=== PATIENT | male | born 1970 | race Hispanic/Latino ===

== ENCOUNTER 2018-08-14 21:54 | Inpatient (IN) | payer OTHER ==
[~2018-08-14] VITALS: Ht 167.6 cm; Wt 95.2 kg
[2018-08-14] MEDS ORDERED: WELLTAB38 PO (22:13)
[2018-08-14] MEDS ORDERED: LUNE3TAB36 PO (22:13)
[2018-08-14] MEDS ORDERED: LISI20TA3 PO (22:13)
[2018-08-14] MEDS ORDERED: OXAZEPAM 15 MG CAP PO ONE (23:45)
[2018-08-15 00:09] LABS: ACETAMINOPHEN LEVEL < 2.0 UG/ML (10.0-30.0); ALBUMIN 3.3 GM/DL (3.2-5.2); ALT/SGPT 78 U/L (12-78); BILIRUBIN,DIRECT 0.8 MG/DL (0.0-0.2); BILIRUBIN,TOTAL 1.6 MG/DL (0.2-1.0); BLOOD UREA NITROGEN 9 MG/DL (7-18); CALCIUM LEVEL 7.2 MG/DL (8.5-10.1); CARBON DIOXIDE LEVEL 27 MEQ/L (21-32); CHLORIDE LEVEL 102 MEQ/L (98-107); CREATININE FOR GFR 0.82 MG/DL (0.70-1.30); ETHYL ALCOHOL (ETHANOL) 0.294 % (0.000-0.010); GLOMERULAR FILTRATION RATE > 60.0 (>60); GLUCOSE, FASTING 124 MG/DL (70-100); SALICYLATE LEVEL < 1.7 MG/DL (5.0-30.0); SODIUM LEVEL 140 MEQ/L (136-145); TOTAL PROTEIN 8.6 GM/DL (6.4-8.2)
[2018-08-15 00:13] LABS: HEMATOCRIT 42.2 % (42.0-52.0); HEMOGLOBIN 15.2 g/dl (13.5-17.5); MEAN CORPUSCULAR HEMOGLOBIN 32.4 pg (27.0-33.0); RED BLOOD COUNT 4.69 10^6/uL (4.30-6.10); WHITE BLOOD COUNT 6.6 10^3/uL (4.0-10.0)
[2018-08-15 00:18] LABS: AMPHETAMINES LEVEL URINE NEGATIVE (NEGATIVE); BARBITURATES URINE NEGATIVE (NEGATIVE); BENZODIAZEPINES URINE NEGATIVE (NEGATIVE); CANNABINOIDS URINE POSITIVE (NEGATIVE); COCAINE METABOLITE URINE NEGATIVE (NEGATIVE); METHADONE URINE NEGATIVE (NEGATIVE); OPIATES URINE NEGATIVE (NEGATIVE); PHENCYCLIDINE URINE NEGATIVE (NEGATIVE)
[2018-08-15 00:40] LABS: PLATELET COUNT, AUTOMATED 94 10^3/uL (150-450)
[2018-08-15 01:40] LABS: INR 1.42; PROTHROMBIN TIME 17.6 SECONDS (12.1-14.4)
[2018-08-15 01:41] LABS: PARTIAL THROMBOPLASTIN TIME 43.9 SECONDS (25.4-37.6)
[2018-08-15] MEDS ORDERED: diphenhydrAMINE 25 MG CAP PO ONE (02:15)
[2018-08-15] MEDS ORDERED: hydroCHLOROthiazide 25 MG TAB PO ONE (07:45)
[2018-08-15] MEDS ORDERED: LISINOPRIL 20 MG TAB PO ONE (07:45)
[2018-08-15] MEDS ORDERED: OXAZEPAM 15 MG CAP PO ONE ×2 (08:15→16:30)
[2018-08-15] MEDS: ENOXAPARIN 40 MG/0.4 ML SYRINGE (J1650) SC SCH (09:00)
[2018-08-15] MEDS: hydroCHLOROthiazide 25 MG TAB PO SCH (09:00)
[2018-08-15] MEDS: LISINOPRIL 20 MG TAB PO SCH (09:00)
[2018-08-15] MEDS: buPROPion **XL** TABLET 150MG (WELLBUTRIN XL) PO SCH (09:05)
[2018-08-15 11:33] LABS: ETHYL ALCOHOL (ETHANOL) 0.098 % (0.000-0.010)
[2018-08-15] MEDS ORDERED: LORazepam 2 MG TAB PO PRN (11:45)
[2018-08-15] MEDS ORDERED: ONDANSETRON 4 MG ORAL DISINTEGRATING TAB (Q0162 PER 1MG) PO ONE (13:15)
[2018-08-15] MEDS ORDERED: ESZO1TAB4 PO (13:34)
[2018-08-15] MEDS ORDERED: ONDANSETRON 4MG/2ML VIAL (J2405) IV PRN (15:15)
--- NOTE | 2018-08-15 15:15 | HPEPDOC ---
[facility] Medical History & Physical Date of Admission Aug 15, 2018 History and Physical ATTENDING: Dr. Sullivan. PCP: [facility] CC: psych problem HPI: 47yoM with a past medical history significant for alcohol use, HTN, who came to the emergency room 08/14/18 related to psych problem as per ED record. Reported having "too many bad dreams" "I am not mentally stable". Patient denies suicidal ideation/homicidal ideation. Denies any prior suicide attempts. States he was consuming alcohol on Tuesday and Tuesday, last drink 2 PM Tuesday. States consumed 1 liter of vodka. Denies any prior history of alcohol withdrawal seizure. Patient reports that he had not consumed alcohol since he completed rehabilitation 06/30. Reported some nausea which he states is currently resolved, no vomiting. States he is drinking fluids. Denies any fevers, chills, weakness, fatigue, CHU, CP, SOB, cough, palpitations, abdominal pain, or changes in bowel or bladder habits. Upon presentation to the hospital the patient was found to have ETOH withdrawal, thus the hospitalist team was consulted. PMHx: Hypertension Anxiety Depression History of alcohol use, completed rehabilitation 06/30 PSHX: Vasectomy SOCHX: 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 States he had not consumed alcohol until Tuesday when he drank 1 L of vodka, last drink 2 PM Tuesday. Illicit Drugs: Denies FAMHX: Mother: alive , breast cancer, diabetes Father: , prostate cancer Siblings: One brother, one sister Alive, depression, bipolar disorder Children: Alive, well Unexpected deaths due to medical reasons: None. ROS: As noted in HPI, otherwise 11pt ROS of systems reviewed and unremarkable. PE: GEN: 47yoM, appears stated age. No acute distress. Alert and oriented x 3. Anxious appearing. HEENT: Normocephalic, atraumatic. Pupils are equal, round, and reactive to light. Extraocular movements are intact. No nystagmus appreciated. Sclera are nonicteric. Conjunctiva without injection. Nose midline. Nasal turbinates without bogginess. No facial asymmetry. Moist mucous membranes. Neck supple, trachea midline. No lymphadenopathy or thyromegaly appreciated. CHEST: Regular rate and rhythm, +S1, +S2 LUNGS: Clear to auscultation bilaterally. No wheezes, rales, or rhonchi. Breathing appears symmetric and easy. Patient is speaking in full sentences. No accessory muscle use. ABD: Round, soft, non-tender, non-distended. +Bowel sounds throughout. No rebound or guarding. No costovertebral angle tenderness. EXT: Pulses 2+ bilaterally dorsalis pedis and radial. No lower extremity edema appreciated. SKIN: [place], dry, warm. Capillary refill <2sec. No rashes. NEURO: Alert and oriented x 3. Cranial nerves III-XII are intact. No focal deficits appreciated. A&P: 47yoM with a past medical history significant for alcohol use, HTN, who came to the emergency room 08/14/18 related to psych problem as per ED record. Reported having "too many bad dreams" "I am not mentally stable". Patient denies suicidal ideation/homicidal ideation. Denies any prior suicide attempts. States he was consuming alcohol on Tuesday and Tuesday, last drink 2 PM Tuesday. States consumed 1 liter of vodka. Denies any prior history of alcohol withdrawal seizure. 1. The pt will be admitted to / for [address] Sullivan's service. Pt is reviewed and examined by Dr Rockwell. 2. Alcohol use. Withdrawal precautions. [facility] protocol. Pt was noted to be tremorous and diaphoretic at 11.30 AM, Ativan 2mg given. Ativan 2 mg prn per [facility] protocol. Plan is to continue with Ativan for now, no further Serax, as discussed with Dr Rockwell. Continue with multivitamin, folic acid, thiamine supplements. Zofran as needed. one to one observation. 3. Transaminitis. Monitor CMP. INR 1.42 on admission labs. Hepatitis profile added to labs. Will Add lipase to labs. Pending at this time. Check right upper quadrant ultrasound. 4. Hypertension. BP 148/77. Continue lisinopril 20 mg daily with hold parameters. HCTZ 25 mg daily. Monitor BP. 5. Anxiety/Depression. Continue bupropion daily. One to one observation. Will likely need Psych consultation. 6. Substance use. DVT prophylaxis. Lovenox SQ. Vital Signs Vital Signs Date Time Temp Pulse Resp B/P (MAP) Pulse Ox O2 Delivery O2 Flow Rate FiO2 08/15/18 13:43 112 148/77 08/15/18 12:14 97.2 21 95 Room Air Laboratory Data Labs 24H Laboratory Tests 2 08/14/18 23:06: Nucleated Red Blood Cells % (auto) 0.0, Immature Platelet Fraction 10.5, Anion Gap 11, Glomerular Filtration Rate > 60.0, Calcium Level 7.2L, Aspartate Amino Transf (AST/SGOT) 401H, Alanine Aminotransferase (ALT/SGPT) 78, Alkaline Phosphatase 193H, Total Bilirubin 1.6H, Direct Bilirubin 0.8H, Total Protein 8.6H, Albumin 3.3, Albumin/Globulin Ratio 0.62L, Thyroid Stimulating Hormone (TSH) 3.160, Salicylates Level < 1.7L, Acetaminophen Level < 2.0L, Ethyl Alcohol Level 0.294H 08/14/18 23:47: Urine Amphetamines Screen NEGATIVE, Urine Benzodiazepines Screen NEGATIVE, Urine Opiates Screen NEGATIVE, Urine Methadone Screen NEGATIVE, Urine Barbiturates Screen NEGATIVE, Urine Phencyclidine Screen NEGATIVE, Urine Cocaine Metabolite Screen NEGATIVE, Urine Cannabinoids Screen POSITIVEH 08/15/18 01:23: Prothrombin Time 17.6H, Prothromb Time International Ratio 1.42, Activated Partial Thromboplast Time 43.9H 08/15/18 09:30: Ethyl Alcohol Level 0.098H CBC/BMP Laboratory Tests 08/14/18 23:06 Red Blood Count 4.69, Mean Corpuscular Volume 90.0, Mean Corpuscular Hemoglobin 32.4, Mean Corpuscular Hemoglobin Concent 36.0, Red Cell Distribution Width 17.2 H Home Medications Scheduled (Lisinopril/Hydrochlorothi 20-25 mg) 1 Tab Tab, 1 TAB PO DAILY Bupropion HCl (Wellbutrin Xl) 150 Mg Tab, 150 MG PO DAILY Scheduled PRN Eszopiclone (Eszopiclone) 1 Mg Tab, 1 MG PO QHS PRN for SLEEP PT STATES DOSAGE HAS BEEN INCREASED PER MD; NO UPDATED RX FOUND Allergies Coded Allergies: No Known Allergies (Unverified , 08/14/18) Attending Note Attending Note I have both independently examined this patient as well as reviewed the H/P. I have discussed in detail with the PA the findings and plan of treatment as documented in the note Char Lilly Aug 15, 2018 15:15 LEA RAO MD Aug 15, 2018 17:44
[2018-08-15 15:43] LABS: LIPASE 1024 U/L (73-393)
[2018-08-15 16:30] VITALS: BP 159/104
[2018-08-15 17:22] VITALS: BP 159/104
[2018-08-15] MEDS: cloNIDine 0.1 MG TAB PO SCH ×2 (17:30→23:57)
[2018-08-15] MEDS: THIAMINE 100 MG TAB PO SCH (20:32)
[2018-08-15 22:00] VITALS: BP 142/80
[2018-08-15] MEDS: OXAZEPAM 15 MG CAP PO PRN (22:51)
[2018-08-16 01:00] VITALS: BP 150/90
[2018-08-16 06:00] VITALS: BP 137/92
[2018-08-16] MEDS: cloNIDine 0.1 MG TAB PO SCH ×3 (06:00→18:00)
[2018-08-16 06:32] LABS: HEMATOCRIT 41.3 % (42.0-52.0); HEMOGLOBIN 14.7 g/dl (13.5-17.5); MEAN CORPUSCULAR HEMOGLOBIN 32.4 pg (27.0-33.0); MEAN CORPUSCULAR HGB CONC 35.6 g/dl (32.0-36.5); RED BLOOD COUNT 4.54 10^6/uL (4.30-6.10); WHITE BLOOD COUNT 6.2 10^3/uL (4.0-10.0)
[2018-08-16 06:35] LABS: PLATELET COUNT, AUTOMATED 60 10^3/uL (150-450)
[2018-08-16 06:56] LABS: ALT/SGPT 68 U/L (12-78); BILIRUBIN,TOTAL 4.2 MG/DL (0.2-1.0); BLOOD UREA NITROGEN 11 MG/DL (7-18); CALCIUM LEVEL 7.7 MG/DL (8.5-10.1); CARBON DIOXIDE LEVEL 30 MEQ/L (21-32); CHLORIDE LEVEL 95 MEQ/L (98-107); CREATININE FOR GFR 0.88 MG/DL (0.70-1.30); GLOMERULAR FILTRATION RATE > 60.0 (>60); GLUCOSE, FASTING 102 MG/DL (70-100); MAGNESIUM LEVEL 1.5 MG/DL (1.8-2.4); POTASSIUM SERUM 3.3 MEQ/L (3.5-5.1); SODIUM LEVEL 134 MEQ/L (136-145); TOTAL PROTEIN 8.5 GM/DL (6.4-8.2)
[2018-08-16 08:39] VITALS: BP 142/84
[2018-08-16] MEDS: MULTIVITAMINS/MINERALS THERAP 1 TAB PO SCH (08:57)
[2018-08-16] MEDS: buPROPion **XL** TABLET 150MG (WELLBUTRIN XL) PO SCH (08:57)
[2018-08-16] MEDS: OXAZEPAM 15 MG CAP PO PRN ×3 (08:57→22:15)
[2018-08-16] MEDS: LISINOPRIL 20 MG TAB PO SCH (08:58)
[2018-08-16] MEDS: FOLIC ACID 1 MG TAB PO SCH (08:58)
[2018-08-16] MEDS: THIAMINE 100 MG TAB PO SCH ×2 (08:58→22:15)
[2018-08-16] MEDS: hydroCHLOROthiazide 25 MG TAB PO SCH (08:58)
[2018-08-16] MEDS: ENOXAPARIN 40 MG/0.4 ML SYRINGE (J1650) SC SCH (09:00)
[2018-08-16 10:09] LABS: HEPATITIS B SURFACE ANTIGEN NEGATIVE (NEGATIVE)
--- NOTE | 2018-08-16 10:26 | REP ---
Right upper quadrant sonography: History: Abnormal liver function studies. Findings: Scanning through the right upper quadrant of the abdomen demonstrates normal sized thin-walled gallbladder. There is a nonshadowing echogenic focus in the gallbladder fundus consistent with a small stone or possibly a polyp. This is on the dependent wall. Common bile duct is normal measuring 0.5 cm in greatest diameter. There is no evidence of ascites or pericholecystic fluid. There is poor insonation of the liver which is echogenic consistent with significant fatty infiltration. Umbilical vein appears patent and recannulized. The pancreas is obscured by abdominal gas. No right renal abnormality is seen. Right kidney measures 12.3 x 7.4 x 5.5 cm. Impression: Poor visualization of the liver with increased echogenicity consistent with significant fatty infiltration. Umbilical vein is recannulated, question portal hypertension. Pancreas is obscured. Small stone versus polyp in the gallbladder. Electronically Signed by Tristen Gonzalez MD 08/16/2018 11:01 A
[2018-08-16 10:36] LABS: HEPATITIS B CORE ANTIBODY IGM NEGATIVE (NEGATIVE); HEPATITIS C VIRUS ABY INDEX < 0.0 INDEX (<0.8)
[2018-08-16 10:38] LABS: HEPATITIS A ANTIBODY IGM NEGATIVE (NEGATIVE)
[2018-08-16] MEDS ORDERED: POTASSIUM CHLORIDE 10 MEQ SR TABLET PO ONE (11:00)
[2018-08-16] MEDS ORDERED: MAG SULF 1GM/100ML (MAG RUN) 1 GM in APPROPRIATE DILUENT 1 EA IV ONE (11:30)
[2018-08-16 14:00] VITALS: BP 138/80
[2018-08-16 16:04] VITALS: BP 128/76
[2018-08-16 21:00] VITALS: BP 128/76
--- NOTE | 2018-08-17 01:47 | IPNPDOC ---
Text Note Date of Service The patient was seen on 08/16/18. NOTE Subjective: Feels better this am . No further nausea or vomiting since yesterday afternoon, feeling hungry. No diarrhea. No fever or chills. No signs or alcohol withdrawal. Physical Exam: Vitals: As below GEN: 47yoM, appears stated age. No acute distress. Alert and oriented x 3. Anxious appearing. HEENT: Normocephalic, atraumatic. Pupils are equal, round, and reactive to light. Extraocular movements are intact. No nystagmus appreciated. Sclera are nonicteric. Conjunctiva without injection. Nose midline. Nasal turbinates without bogginess. No facial asymmetry. Moist mucous membranes. Neck supple, trachea midline. No lymphadenopathy or thyromegaly appreciated. CHEST: Regular rate and rhythm, +S1, +S2 LUNGS: Clear to auscultation bilaterally. No wheezes, rales, or rhonchi. Breathing appears symmetric and easy. Patient is speaking in full sentences. No accessory muscle use. ABD: Round, soft, non-tender, non-distended. +Bowel sounds throughout. No rebound or guarding. No costovertebral angle tenderness. EXT: Pulses 2+ bilaterally dorsalis pedis and radial. No lower extremity edema appreciated. SKIN: [place], dry, warm. Capillary refill <2sec. No rashes. NEURO: Alert and oriented x 3. Cranial nerves III-XII are intact. No focal deficits appreciated. Labs and Radiology : reviewed. Assessment and Plan: 47yoM with a past medical history significant for alcohol use, HTN, anxiety and depression who came to the emergency room 08/14/18 related to psych problem as per ED record. Reported having "too many bad dreams" "I am not mentally stable". Patient denies suicidal ideation/homicidal ideation. Denies any prior suicide attempts. States he was consuming alcohol on Tuesday and Tuesday, last drink 2 PM Tuesday. States consumed 1 liter of vodka. Denies any prior history of alcohol withdrawal seizure. Patient reports that he had not consumed alcohol since he completed rehabilitation 06/30. Upon presentation to the hospital the patient was found to have ETOH withdrawal, thus the hospitalist team was consulted. Alcohol withdrawal Withdrawal precautions. [facility] protocol. Continue with multivitamin, folic acid, thiamine supplements, Ativan prn , serax. Zofran as needed. Thrombocytopenia probably alcohol related bone marrow suppression however if it does not improve with stopping alcohol use then may signify the presence of underlying cirrhosis. will stop heparin. Transaminitis. due to alcohol abuse with fatty liver there is features of portal hypertensin in Liver US. hepatitis panel negative INR 1.42 on admission labs. Fatty liver with possible uderlying cirrhosis suggested by the presence of protal hypertensionas indicated by umbilical vein recanulation, thrombocytopenia. discussed abstinence from alcohol Hypertension. Continue lisinopril 20 mg daily with hold parameters. HCTZ 25 mg daily. Anxiety/Depression. Continue bupropion daily. Hypomagnesemia and hypokalemia replaced. Substance use counselling about quitting alcohol DVT prophylaxis. TEDS and stockings. VS,Fishbone, I+O VS, Fishbone, I+O Laboratory Tests 08/16/18 05:42 Red Blood Count 4.54, Mean Corpuscular Volume 91.0, Mean Corpuscular Hemoglobin 32.4, Mean Corpuscular Hemoglobin Concent 35.6, Red Cell Distribution Width 16.1 H, Calcium Level 7.7 L, Aspartate Amino Transf (AST/SGOT) 322 H, Alanine Aminotransferase (ALT/SGPT) 68, Alkaline Phosphatase 172 H, Total Bilirubin 4.2 #H, Total Protein 8.5 H, Albumin 3.0 L Vital Signs Date Time Temp Pulse Resp B/P (MAP) Pulse Ox O2 Delivery O2 Flow Rate FiO2 08/17/18 00:00 128/86 08/16/18 16:04 100 08/16/18 14:00 95.6 16 94 08/15/18 12:14 Room Air I&O- Last 24 Hours up to 6 AM 08/17/18 06:00 Intake Total 1450 ml Output Total 700 ml Balance 750 ml RADHA ENGLISH MD Aug 17, 2018 01:47
[2018-08-17] MEDS: OXAZEPAM 15 MG CAP PO PRN (05:56)
[2018-08-17] MEDS: cloNIDine 0.1 MG TAB PO SCH ×2 (05:57)
[2018-08-17 06:00] VITALS: BP 163/103
[2018-08-17 06:49] LABS: HEMATOCRIT 42.6 % (42.0-52.0); HEMOGLOBIN 15.2 g/dl (13.5-17.5); MEAN CORPUSCULAR HEMOGLOBIN 32.3 pg (27.0-33.0); MEAN CORPUSCULAR HGB CONC 35.7 g/dl (32.0-36.5); MEAN CORPUSCULAR VOLUME 90.6 fl (80.0-96.0); WHITE BLOOD COUNT 7.6 10^3/uL (4.0-10.0)
[2018-08-17 06:50] LABS: PLATELET COUNT, AUTOMATED 63 10^3/uL (150-450)
[2018-08-17 07:15] LABS: ALT/SGPT 57 U/L (12-78); BILIRUBIN,TOTAL 3.8 MG/DL (0.2-1.0); BLOOD UREA NITROGEN 12 MG/DL (7-18); CALCIUM LEVEL 8.6 MG/DL (8.5-10.1); CARBON DIOXIDE LEVEL 30 MEQ/L (21-32); CHLORIDE LEVEL 95 MEQ/L (98-107); CREATININE FOR GFR 0.87 MG/DL (0.70-1.30); GLOMERULAR FILTRATION RATE > 60.0 (>60); GLUCOSE, FASTING 95 MG/DL (70-100); POTASSIUM SERUM 3.5 MEQ/L (3.5-5.1); SODIUM LEVEL 133 MEQ/L (136-145); TOTAL PROTEIN 8.6 GM/DL (6.4-8.2)
[2018-08-17 09:00] VITALS: BP 133/83
[2018-08-17] MEDS: ENOXAPARIN 40 MG/0.4 ML SYRINGE (J1650) SC SCH (09:00)
[2018-08-17] MEDS: buPROPion **XL** TABLET 150MG (WELLBUTRIN XL) PO SCH (09:01)
[2018-08-17] MEDS: THIAMINE 100 MG TAB PO SCH (09:01)
[2018-08-17] MEDS: MULTIVITAMINS/MINERALS THERAP 1 TAB PO SCH (09:01)
[2018-08-17 09:03] VITALS: BP 133/87
[2018-08-17] MEDS: LISINOPRIL 20 MG TAB PO SCH (09:03)
[2018-08-17] MEDS: hydroCHLOROthiazide 25 MG TAB PO SCH (09:04)
[2018-08-17] MEDS: FOLIC ACID 1 MG TAB PO SCH (09:04)
[2018-08-17] MEDS ORDERED: FOLI1TAB11 PO (10:24)
[2018-08-17] MEDS ORDERED: THIA100TA PO (10:24)
[2018-08-17] MEDS ORDERED: VITMTA PO (10:24)
--- NOTE | 2018-08-22 01:43 | DS.PDOC ---
Discharge Summary General Date of Admission Aug 15, 2018 at 15:08 Date of Discharge 08/17/18 Attending Physician: RADHA ENGLISH MD Discharge Summary PROCEDURES PERFORMED DURING STAY: None DISCHARGE DIAGNOSES: Alcohol Withdrawal Transaminitis Thrombocytopenia Portal hypertension in US Possible Early Cirrhosis COMPLICATIONS/CHIEF COMPLAINT: Alcohol Withdrawal. HISTORY OF PRESENT ILLNESS: See history and physical HOSPITAL COURSE: 47yoM with a past medical history significant for alcohol use, HTN, anxiety and depression who came to the emergency room 08/14/18 related to psych problem as per ED record. Reported having "too many bad dreams" "I am not mentally stable". Patient denies suicidal ideation/homicidal ideation. Denies any prior suicide attempts. States he was consuming alcohol on Tuesday and Tuesday, last drink 2 PM Tuesday. States consumed 1 liter of vodka. Denies any prior history of alcohol withdrawal seizure. Patient reports that he had not consumed alcohol since he completed rehabilitation 06/30. Upon presentation to the hospital the patient was found to have ETOH withdrawal, thus the hospitalist team was consulted. Alcohol withdrawal resolved Continue with multivitamin, folic acid, thiamine supplements Thrombocytopenia probably alcohol related bone marrow suppression however if it does not improve with stopping alcohol use then may signify the presence of underlying cirrhosis. Transaminitis. due to alcohol abuse with fatty liver there is features of portal hypertensin in Liver US. hepatitis panel negative INR 1.42 on admission labs. Fatty liver with possible underlying cirrhosis suggested by the presence of protal hypertension indicated by umbilical vein recanulation, thrombocytopenia. discussed abstinence from alcohol Hypertension. Continue lisinopril 20 mg daily with hold parameters. HCTZ 25 mg daily. Anxiety/Depression. Continue bupropion daily. Hypomagnesemia and hypokalemia replaced. Substance use counselling about quitting alcohol DISCHARGE MEDICATIONS: Please see below. ALLERGIES: Please see below. PHYSICAL EXAMINATION ON DISCHARGE: VITAL SIGNS: Please see below. GEN: 47yoM, appears stated age. No acute distress. Alert and oriented x 3. Anxious appearing. HEENT: Normocephalic, atraumatic. Pupils are equal, round, and reactive to light. Extraocular movements are intact. No nystagmus appreciated. Sclera are nonicteric. Conjunctiva without injection. Nose midline. Nasal turbinates without bogginess. No facial asymmetry. Moist mucous membranes. Neck supple, trachea midline. No lymphadenopathy or thyromegaly appreciated. CHEST: Regular rate and rhythm, +S1, +S2 LUNGS: Clear to auscultation bilaterally. No wheezes, rales, or rhonchi. Breathing appears symmetric and easy. Patient is speaking in full sentences. No accessory muscle use. ABD: Round, soft, non-tender, non-distended. +Bowel sounds throughout. No rebound or guarding. No costovertebral angle tenderness. EXT: Pulses 2+ bilaterally dorsalis pedis and radial. No lower extremity edema appreciated. SKIN: [place], dry, warm. Capillary refill <2sec. No rashes. NEURO: Alert and oriented x 3. Cranial nerves III-XII are intact. No focal deficits appreciated. LABORATORY DATA: Please see below. ACTIVITY: As tolerated DIET: As tolerated DISPOSITION: 01 Home, Self-Care. DISCHARGE INSTRUCTIONS: Follow up PMD in 1 week Liver profile and platelet in 1 week DISCHARGE CONDITION: Stable TIME SPENT ON DISCHARGE: Greater than 30 minutes. Vital Signs/I&Os Vital Signs Date Time Temp Pulse Resp B/P (MAP) Pulse Ox O2 Delivery O2 Flow Rate FiO2 08/17/18 09:03 133/87 08/17/18 09:00 88 08/17/18 06:00 98.1 18 97 Laboratory Data CBC/BMP Vital Signs Label Value Date Time Patient Temperature 98.1 degrees F 08/17/18599 Temperature Source Temporal 08/17/18599 Pulse 94 08/17/18599 Respiratory Rate 18 bpm 08/17/18599 Blood Pressure Assessment 163/103 (123) 08/17/18 06 Bedside Pulse Oximetry 97 % 08/17/18599 Item Value Date Time White Blood Count 7.6 10^3/uL 08/17/18 06 Red Blood Count 4.70 10^6/uL 08/17/18 0620 Hemoglobin 15.2 g/dl 08/17/18619 Hematocrit 42.6 % 08/17/18619 Mean Corpuscular Volume 90.6 fl 08/17/18619 Mean Corpuscular Hemoglobin 32.3 pg 08/17/18619 Mean Corpuscular Hemoglobin Concent 35.7 g/dl 08/17/18619 Red Cell Distribution Width 15.9 % H 08/17/18619 Platelet Count 63 10^3/uL L 08/17/1820 Nucleated Red Blood Cells % (auto) 0.0 % 08/17/18619 Immature Platelet Fraction 13.9 % H 08/17/1820 Sodium Level 133 MEQ/L L 08/17/18 0620 Potassium Level 3.5 MEQ/L 08/17/18 0620 Chloride Level 95 MEQ/L L 08/17/18 0620 Anion Gap 8 MEQ/L 08/17/18 0620 Carbon Dioxide Level 30 MEQ/L 08/17/18 0620 Blood Urea Nitrogen 12 MG/DL 08/17/18 0620 Creatinine 0.87 MG/DL 08/17/18 0620 Glomerular Filtration Rate > 60.0 08/17/1820 Fasting Glucose 95 MG/DL 08/17/18 0620 Calcium Level 8.6 MG/DL 08/17/18 0620 Magnesium Level 2.0 MG/DL 08/17/18 0620 Total Bilirubin 3.8 MG/DL H 08/17/18 0620 Aspartate Amino Transf (AST/SGOT) 253 U/L H 08/17/18 0620 Alanine Aminotransferase (ALT/SGPT) 57 U/L 08/17/18 0620 Alkaline Phosphatase 175 U/L H 08/17/18 0620 Total Protein 8.6 GM/DL H 08/17/18 0620 Albumin 3.0 GM/DL L 08/17/1820 Albumin/Globulin Ratio 0.54 L 08/17/18619 Discharge Medications Scheduled (Lisinopril/Hydrochlorothi 20-25 mg) 1 Tab Tab, 1 TAB PO DAILY, (Reported) Bupropion HCl (Wellbutrin Xl) 150 Mg Tab, 150 MG PO DAILY, (Reported) Folic Acid (Folic Acid) 1 Mg Tab, 1 MG PO DAILY Multivitamins *[facility] STOCKED* (Thera M Plus *[facility] STOCKED*) 1 Tab Tab, 1 TAB PO DAILY Thiamine Hcl (Thiamine Hcl) 100 Mg Tab, 100 MG PO BID Scheduled PRN Eszopiclone (Eszopiclone) 1 Mg Tab, 1 MG PO QHS PRN for SLEEP, (Reported) PT STATES DOSAGE HAS BEEN INCREASED PER MD; NO UPDATED RX FOUND Allergies Coded Allergies: No Known Allergies (Unverified , 08/14/18) RADHA ENGLISH MD Aug 22, 2018 01:43
== END 2018-08-17 11:51 | disposition home or self-care (01) | DRG 898 ==
LOC: M ED 21:54 → M ED INP 08-15 15:08 → M MSPAV 08-15 16:23
PROVIDERS: ADMIT Internal Medicine; ATTEND Internal Medicine Nephrology
DX: F10.239 Alcohol dependence with withdrawal, unspecified (principal); K76.6 Portal hypertension; F17.220 Nicotine dependence, chewing tobacco, uncomplicated; I10 Essential (primary) hypertension; F41.9 Anxiety disorder, unspecified; F32.9 Major depressive disorder, single episode, unspecified; R74.0 Nonspecific elevation of levels of transaminase and lactic acid dehydrogenase [LDH]; D69.59 Other secondary thrombocytopenia; E87.6 Hypokalemia; E83.42 Hypomagnesemia; K70.30 Alcoholic cirrhosis of liver without ascites; Z79.899 Other long term (current) drug therapy